=== PATIENT | male | born 1985 | race Caucasian/White ===

== ENCOUNTER 2020-07-18 14:33 | Emergency (ER) | payer MEDICARE, SELFPAY ==
[2020-07-18 14:57] VITALS: BP 127/85; PULSE 105; RESP 20; TEMP 36.8; O2SAT 95; BMI 19.8
--- NOTE | 2020-07-18 15:14 | HMH.EDUTC ---
[facility] [place] Disposition Clinical Impression: Acute bronchitis Qualifiers: Bronchitis organism: unspecified organism Qualified Code(s): J20.9 - Acute bronchitis, unspecified Disposition: Home, Self-Care Condition on Discharge: Good Instructions: Acute Bronchitis, DI for Acute Bronchitis Additional Instructions: Drink plenty of fluids. Take tylenol for pain or fever. Take the medications as directed. Follow up with your regular doctor. GO TO THE ER FOR ANY WORSENING SYMPTOMS Prescriptions: methylPREDNISolone [Medrol] 4 mg PO DIRECTED 6 Days #21 tab.ds.pk Transmission Status: Received by [facility] # Cefdinir [Omnicef 300mg Capsule] 300 mg PO BID #20 cap Transmission Status: Received by [facility] # Referrals: Yogesh Berger MD [Primary Care Provider] - Time of Disposition: 15:20 Medical Decision Making - Medical Records Medical records reviewed: No: I reviewed the patient's medical records. - Jeffy Inquiry Pt receiving controlled substance: No Vital Signs: 07/18/20 14:57 07/18/20 15:23 Temperature 98.3 F 98.3 F Temperature Source Oral Pulse Rate 105 H Pulse Rate [Right Brachial] 105 H Respiratory Rate 20 20 Blood Pressure 127/85 Blood Pressure [Right Arm] 127/85 Blood Pressure Mean [Right Arm] 99 Blood Pressure Source [Right Arm] Automatic Cuff Blood Pressure Position [Right Arm] Sitting 02 Sat by Pulse Oximetry 95 - Lab Data Lab Results 07/18/20 15:15: Chlamy pneumoniae PCR Not detected, Adenovirus (PCR) Not detected, B. pertussis DNA (PCR) Not detected, Coronavirus OC43 (PCR) Not detected, Coronavirus HKU1 (PCR) Not detected, Coronavirus 229E (PCR) Not detected, SARS-CoV-2 (PCR) Not detected, Coronavirus NL63 (PCR) Not detected, Human Metapneumovir PCR Not detected, Influenza A (H1) PCR Not detected, Influ A (H1N1/09) PCR Not detected, Influenza A (H3) PCR Not detected, Influenza Type A (PCR) Not detected, Influenza Type B (PCR) Not detected, M. pneumoniae (PCR) Not detected, Parainfluenza 1 (PCR) Not detected, Parainfluenza 2 (PCR) Not detected, Parainfluenza 3 (PCR) Not detected, Parainfluenza 4 (PCR) Not detected, RSV (PCR) Not detected, Entero/Rhino (PCR) Detected A [facility] [place] HPI - General Stated complaint: congestion Time Seen by Provider: 07/18/20 15:15 Mode of Arrival: Ambulatory Source of Information: Patient Limitations: No Limitations Description of Symptoms (Recalled from Triage Doc. by RN): PATIENT C/O PRODUCTIVE COUGH WITH GREEN MUCOUS X 2-3 DAYS THAT IS WORSE AT NIGHT. HE ALSO REPORTS A PRESSURE ULCER TO RIGHT BUTTOCK THAT HE NOTICED YESTERDAY HEENT Symptoms (Recalled from RN notes): No Resp Symptoms (Recalled from RN notes): Yes Skin Symptoms (Recalled from RN notes): Yes MS Symptoms (Recalled from RN notes): No Functional Status (Recalled from RN notes): WNL - History of Present Illness Provider Complaint: He states that over the past 3 days he has began coughing (productive with greenish sputum) and feeling bad. He denies any know exposure to covid-19. - Related Data Previous Rx's Medication Instructions Recorded Cefdinir [Omnicef 300mg Capsule] 300 mg PO BID #20 cap 07/18/20 methylPREDNISolone [Medrol] 4 mg PO DIRECTED 6 Days #21 07/18/20 tab.ds.pk Allergies Allergy/AdvReac Type Severity Reaction Status Date / Time amoxicillin Allergy Verified 10/15/19 13:02 - Worker's Comp Is this a Worker's Comp case?: No [facility] History - Hepatitis A Screen Drug use history?: No High risk sexual behaviors?: No History of sexually transmitted infection?: No Currently employed?: No Childcare worker?: No Do you have indoor plumbing?: Yes Do you have electricity?: Yes Attestation statement:: This patient has been screened for Hepatitis A risk factors. I have reviewed the patient's past medical history: Yes Medical History: Reports:: Urinary Tract Infection Denies:: Diabetes Mellitus Type 1, Di
[2020-07-18 15:23] VITALS: BP 127/85; PULSE 105; RESP 20; TEMP 36.8; O2SAT 95
[2020-07-18 17:23] LABS: Adenovirus,PCR Not Detected (NotDetected); Bordetella Pertussis Not Detected (NotDetected); Chlamydophila Pneumoniae, PCR Not Detected (NotDetected); Coronavirus 19, PCR Not Detected (NotDetected); Coronavirus 229E Not Detected (NotDetected); Coronavirus NL63 Not Detected (NotDetected); Coronavirus OC43 Not Detected (NotDetected); Coronovirus HKU1,PCR Not Detected (NotDetected); Human Metapneumovirus Not Detected (NotDetected); Influenza A, PCR Not Detected (NotDetected); Influenza AH1, 2009 Not Detected (NotDetected); Influenza AH1, PCR Not Detected (NotDetected); Influenza AH3,PCR Not Detected (NotDetected); Influenza B, PCR Not Detected (NotDetected); Mycoplasma Pneumoniae, PCR Not Detected (NotDetected); Parainfluenza 1, PCR Not Detected (NotDetected); Parainfluenza 2, PCR Not Detected (NotDetected); Parainfluenza 3, PCR Not Detected (NotDetected); Parainfluenza 4, PCR Not Detected (NotDetected); Respiratory Syncytial Virus Not Detected (NotDetected)
[2020-07-18 20:10] LABS: Rhinovirus/Enterovirus Detected (NotDetected)
== END 2020-07-18 15:25 | disposition home or self-care (01) ==
PROVIDERS: Emergency Provider Nurse Practitioner Family; PCP Family Medicine
DX: Z20.828 Contact with and (suspected) exposure to other viral communicable diseases (principal); J20.9 Acute bronchitis, unspecified; G82.21 Paraplegia, complete
CPT/HCPCS: G0463; 87581; 87633; 87798; 99201; U0003

== ENCOUNTER 2020-10-05 13:13 | Emergency (ER) | payer MEDICARE, SELFPAY ==
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
[2020-10-05 13:27] VITALS: BP 114/55; PULSE 64; RESP 21; TEMP 36.9; O2SAT 100; BMI 21.1
[2020-10-05 13:48] VITALS: BP 114/55; PULSE 64; RESP 21; TEMP 36.9; O2SAT 100
== END 2020-10-05 13:50 | disposition home or self-care (01) ==
PROVIDERS: Emergency Provider Physician Assistant; PCP Family Medicine
DX: J01.00 Acute maxillary sinusitis, unspecified (principal); N30.00 Acute cystitis without hematuria; F17.210 Nicotine dependence, cigarettes, uncomplicated; G82.20 Paraplegia, unspecified
CPT/HCPCS: G0463; 99202

== ENCOUNTER 2020-12-07 15:52 | Emergency (ER) | payer MEDICARE, SELFPAY ==
[2020-12-07 15:55] VITALS: BP 132/90; PULSE 82; RESP 19; TEMP 36.6; O2SAT 100; BMI 20.4
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
[2020-12-07 16:17] VITALS: BP 132/90; PULSE 82; RESP 19; TEMP 36.6; O2SAT 100
== END 2020-12-07 16:20 | disposition home or self-care (01) ==
PROVIDERS: Emergency Provider Physician Assistant; PCP Family Medicine
DX: J01.90 Acute sinusitis, unspecified (principal); F17.210 Nicotine dependence, cigarettes, uncomplicated
CPT/HCPCS: 99202; G0463

== ENCOUNTER 2020-12-09 21:30 | Emergency (ER) | payer MEDICARE, SELFPAY ==
[2020-12-09 21:31] VITALS: BP 148/105; PULSE 98; RESP 18; TEMP 37.6; O2SAT 98; BMI 20.4
--- NOTE | 2020-12-09 21:47 | CT_ITS ---
PROCEDURE: CT ABDOMEN PELVIS W CON CLINICAL INDICATION: blood in urine COMPARISON: No exams were available for comparison TECHNIQUE: IV Contrast: 75ML Isovue 370 Oral Contrast None Axial images obtained with sagittal and coronal reformats. All CT scans at the facility use one or more dose reduction, viz: automated exposure control, ma/kV adjustment per patient size (including targeted exams where dose is matched to indication, i.e. head), or iterative reconstruction technique. FINDINGS: LOWER THORAX: No acute finding ABDOMEN & PELVIS: The liver, spleen, right adrenal gland, pancreas, and kidneys have an unremarkable appearance. 12 mm nodule projects off the posterior aspect of the left adrenal gland and is indeterminate. There is a left-sided inferior vena cava which traverses to the right side at the level of the renal veins as normal variant. Multiple unopacified bowel loops in the abdomen or pelvis which could obscure or mimic pathology. If symptoms persist, consider repeat exam with IV and oral contrast.. No evidence of appendicitis. No intestinal obstruction or free air. There is a mild amount of retained colonic feces. Subcutaneous soft tissue thickening noted at the anal region. Please correlate with physical exam. Bony hyperostosis noted at the ischial tuberosities. There are mild degenerative changes of the hips. IMPRESSION: 1. Indeterminate left adrenal nodule. Nonemergent follow-up with CT or MRI adrenal protocol may provide further evaluation. 2. Moderate amount of retained colonic feces. 3. Soft tissue thickening at the anal region of questionable clinical significance. Direct visualization may provide further evaluation Dictated by: Bart Brown MD 12/10/2020 07:07 Bart Brown MD in [place] 12/10/2020 07:07
[2020-12-09 22:11] LABS: Basophils % 0.3 % (0.1-2.0); Eosinophils # 0.1 K/mm3 (0.0-0.4); Eosinophils % 0.5 % (0.1-12.0); Hematocrit 48.2 % (42.0-52.0); Hemoglobin 16.2 g/dL (14.1-18.0); Lymphocytes # 0.9 K/mm3 (0.7-4.5); Mean Corpuscular HGB Conc 33.7 g/dL (31.8-35.4); Mean Corpuscular Hemoglobin 30.8 pg (27.0-31.2); Mean Corpuscular Volume 91.4 fl (80-94); Mean Platelet Volume 8.2 fl (7.4-10.4); Monocytes # 0.6 K/mm3 (0.1-1.0); Monocytes % 4.8 % (1.7-9.3); Neutrophils # 10.7 K/mm3 (1.8-7.8); Neutrophils % 87.4 % (37.0-80.0); Platelet Count 246 K/mm3 (142-424); Red Blood Count 5.27 M/mm3 (4.60-6.20); Red Cell Distribution Width 13.8 % (11.5-17.5); White Blood Count 12.2 K/mm3 (4.8-10.8)
[2020-12-09 22:15] LABS: MANUAL DIFFERENTIAL MANUAL DIFFERENTIAL (MANUAL DIFF)
[2020-12-09 22:19] LABS: Microscopic, Urine URINE MICROSCOPIC (MICROSCOPIC)
[2020-12-09 22:28] LABS: Appearance,Urine TURBID (Clear); Blood, Urine 3+ (Negative); Color,Urine BROWN (Yellow); Glucose,Urine (UA) Negative (Negative); Ketones,Urine TRACE (Negative); Leukocyte Esterase,Urine Negative (Negative); Nitrate,Urine Negative (Negative); PH,Urine 5.5 (5.0-8.5); Protein,Urine 2+ (Negative); Specific Gravity, Urine >= 1.030 (1.005-1.030); Urobilinogen,Urine 0.2 EU/dl (0.2)
[2020-12-09 22:30] LABS: Alanine Aminotransferase 26 U/L (12-78); Albumin Level 5.2 g/dl (3.5-5.0); Albumin/Globulin Ratio 1.7 (1.1-1.8); Alkaline Phosphatase 97 U/L (38-126); Anion Gap 14.6 mEq/L (5-15); Aspartate Amino Transferase 31 U/L (17-59); Bilirubin,Total 0.2 mg/dl (0.2-1.3); Blood Urea Nitrogen 17 mg/dl (9-20); Calcium 10.2 mg/dl (8.4-10.2); Carbon Dioxide 29 mmol/L (22.0-30.0); Chloride 104 mmol/L (98-107); Creatinine Clearance Estimated 126 mL/min (50-200); Estimated Glomerular Filt Rate 109 ml/min (>60); GFR (African American) 132 ML/MIN (>60); Globulin 3.1 g/dL (1.3-3.2); Glucose 113 mg/dl (74-100); Potassium 3.6 mmoL/L (3.5-5.1); Sodium 144 mmol/L (136-145); Total Protein,Serum 8.3 g/dl (6.3-8.2)
[2020-12-09 22:32] LABS: Amorphous Sediment,Urine 4+ /lpf; Bilirubin,Urine Negative (Negative); RBC,Urine TNTC #/hpf (0-3)
[2020-12-09 22:39] LABS: Erythrocyte Sedimentation Rate 2 mm/hr (0-15)
[2020-12-09 22:43] LABS: Lactic Acid 1.9 mmol/L (0.7-2.1); Lymphocytes % 14 % (10-50); Neutrophils % 79 % (42-76); Platelet Estimate Normal; RBC Morphology Normal; Total Cells Counted 100
[2020-12-09 22:52] LABS: Procalcitonin 0.105 ng/mL (0.0-2.0)
--- NOTE | 2020-12-09 22:58 | HMH.EDUROGM ---
ED Disposition Clinical Impression: SIRS (systemic inflammatory response syndrome) Hematuria Qualifiers: Hematuria type: gross Qualified Code(s): R31.0 - Gross hematuria Disposition: Home, Self-Care Condition on Discharge: Good Instructions: DI for Hematuria Additional Instructions: call dr smith in am Referrals: Yogesh Berger MD [Primary Care Provider] - - Critical Care Critical Care Time: No Attestation: On 12/09/20, the high probability of a clinically significant, sudden or life threatening deterioration of the following system(s) required my full and direct attention, intervention and personal management. The time I documented below is in addition to time spent performing reported procedures but includes the following listed in this critical care notation. Medical Decision Making - Medical Records Medical records reviewed: Yes: I reviewed the patient's medical records. - Jeffy Inquiry Pt receiving controlled substance: No Vital Signs: 12/09/20 21:31 Temperature 99.7 F H Temperature Source Oral Pulse Rate [Right] 98 H Respiratory Rate 18 Blood Pressure [Right Arm] 148/105 H Blood Pressure Mean [Right Arm] 119 02 Sat by Pulse Oximetry 98 - Lab Data Lab results reviewed: Yes: I reviewed the patient's lab results. Lab Results 12/09/20 21:51: Urine Color Brown, Urine Appearance Turbid, Urine pH 5.5, Ur Specific Pala >= 1.030, Urine Protein 2+, Urine Glucose (UA) Negative, Urine Ketones Trace, Urine Blood 3+, Urine Nitrate Negative, Urine Bilirubin Negative, Urine Urobilinogen 0.2, Ur Leukocyte Esterase Negative, Urine RBC Tntc, Amorphous Sediment 4+ 12/09/20 22:00: WBC 12.2 H, RBC 5.27, Hgb 16.2, Hct 48.2, MCV 91.4, MCH 30.8, MCHC 33.7, RDW 13.8, Plt Count 246, MPV 8.2, Neut % (Auto) 87.4 H, Lymph % (Auto) 7.0 L, Winn % (Auto) 4.8, Eos % (Auto) 0.5, Baso % (Auto) 0.3, Neut # (Auto) 10.7 H, Lymph # (Auto) 0.9, Winn # (Auto) 0.6, Eos # (Auto) 0.1, Baso # (Auto) 0.0, Total Counted 100, Neutrophils % (Manual) 79 H, Band Neutrophils % 7.0, Lymphocytes % (Manual) 14, Platelet Estimate Normal, RBC Morphology Normal, ESR 2 12/09/20 22:00: Sodium 144, Potassium 3.6, Chloride 104, Carbon Dioxide 29, Anion Gap 14.6, BUN 17, Creatinine 0.80, Estimated Creat Clear 126, Estimated GFR 109, Est GFR ( Amer) 132, Glucose 113 H, Calcium 10.2, Total Bilirubin 0.2, AST 31, ALT 26, Alkaline Phosphatase 97, C-Reactive Protein 23.0 H, Total Protein 8.3 H, Albumin 5.2 H, Globulin 3.1, Albumin/Globulin Ratio 1.7, Procalcitonin 0.105 12/09/20 22:00: Lactate 1.9 Result diagrams: 12/09/20 22:00 12/09/20 22:00 Orders (Tests/Meds): ED MEDICATIONS Generic Name Dose Route Start Last Admin Trade Name Freq PRN Reason Stop Dose Admin Sodium Chloride 1,000 mls @ 999 mls/hr 12/09/20 22:00 12/09/20 23:05 Sod Chlor 0.9% 1000ml Bag IV 12/09/20 23:00 999 mls/hr .Q1H1M ELVIA Administration Ceftriaxone Sodium 1 gm/ 50 mls @ 100 mls/hr 12/09/20 23:00 12/09/20 23:04 Sodium Chloride IV 12/23/20 22:59 100 mls/hr Q24H ELVIA Administration Protocol Discontinued Medications Generic Name Dose Route Start Last Admin Trade Name Freq PRN Reason Stop Dose Admin Acetaminophen/Codeine Phosphate 1 [place]ston 12/09/20 23:00 12/09/20 23:05 Acetaminophen 300mg W/Codeine 30mg Take Home Pack (6) PO 12/09/20 23:01 1 winston ONCE ONE Administration Iopamidol 70 ml 12/09/20 22:45 12/09/20 22:46 Iopamidol-370 (76%);100ml Bottle IV 12/09/20 22:46 70 ml ONCE ONE Administration Ketorolac Tromethamine 30 mg 12/09/20 23:01 12/09/20 23:04 Ketorolac 30mg/Ml Vial IV 12/09/20 23:02 30 mg ONCE ONE Administration Ondansetron HCl 4 mg 12/09/20 23:01 12/09/20 23:04 Ondansetron 4mg/2ml Vial IV 12/09/20 23:02 4 mg ONCE ONE Administration Sodium Chloride 10 ml 12/09/20 22:45 12/09/20 22:46 Sodium Chloride 0.9% 10ml Syr (Rad Only) IV 12/09/20 22:46 10 ml ONCE ONE Administration
[2020-12-09 23:22] VITALS: BP 134/89; PULSE 87; RESP 16; TEMP 37.2; O2SAT 96
== END 2020-12-09 23:24 | disposition home or self-care (01) ==
PROVIDERS: Emergency Provider Emergency Medicine; PCP Family Medicine
DX: R31.0 Gross hematuria (principal); R65.10 Systemic inflammatory response syndrome (SIRS) of non-infectious origin without acute organ dysfunction; Z88.1 Allergy status to other antibiotic agents; G82.21 Paraplegia, complete
CPT/HCPCS: 74177; 80053; 81001; 83605; 84145; 85007; 85025; 85651; 86140; 87040; 87086; 96375; 99283; J2405; Q9967

== ENCOUNTER 2020-12-27 14:25 | Emergency (ER) | payer MEDICARE, SELFPAY ==
[2020-12-27 14:25] VITALS: BP 133/79; PULSE 86; RESP 20; TEMP 37; O2SAT 100; BMI 22.1
--- NOTE | 2020-12-27 14:46 | HMH.EDUTC ---
[facility] [place]position Clinical Impression: Sinusitis Qualifiers: Sinusitis location: unspecified location Chronicity: unspecified Qualified Code(s): J32.9 - Chronic sinusitis, unspecified Acute bronchitis Qualifiers: Bronchitis organism: unspecified organism Qualified Code(s): J20.9 - Acute bronchitis, unspecified Disposition: Home, Self-Care Condition on Discharge: Good Instructions: Sinusitis, DI for Sinusitis, Acute Bronchitis, DI for Acute Bronchitis, DI for Urinary Tract Infection (UTI) Additional Instructions: ? Start antibiotic today. Be sure to complete entire prescription even if feeling better ? Monitor temp. Tylenol every 4 hours as needed and / or ibuprofen every 6 hours as needed ( As long as your primary care physician has told you that it ok to take both. For fever/aches/pains ER if no less than 101 despite Tylenol or Motrin ? Humidifier/vaporizer or hot steamy shower ? Inhaler every 4-6 hours as needed like we discussed. If unsure how to use it, ask pharmacist to demonstrate how. Should help open airways and improve cough, wheezing, and shortness of breath ? Mucinex during the day for your cough and cough suppressant only at night. Be sure to drink lots of water. Insurance may not cover a prescriptions for mucinex. Might be cheaper to get 400mg tablets and take 2 tablet in the morning, mid-day and evening with lots of water. *Start steroid today. Helps with inflammation therefore, cough and wheezing. Follow directions on the package. Reviewed side effects. Patient reports taking them before. Follow up IMMEDIATELY for new or worsening of symptoms OR no noticeable improvement over the next 48-72 hours. 911 immediately for any life threatening symptoms such as chest pain or difficulty breathing *Increase fluids. Water not Soda or Tea *Start antibiotic immediately and be sure to take as ordered for the FULL length of time although you should start to see improvement over the next 48 hours *Be SURE to follow up anytime for new or worsening symptoms with your family doctor. AND in 48 hours for urine culture results with your family doctor, if you do not have a doctor then you may call back to the [facility] for urine culture results and further treatment. We do recommend that you choose and establish care with a Primary Care Physician. AND follow up with them in 10-14 days to repeat UA to ensure infection is resolved and blood no longer present *Be sure to let your PCP know that we sent urine cultures from the [facility] so they can follow up to ensure that you area the on the correct antibiotic Call your doctor office and make appointment for 48 hours (2 days from today) to follow up and get the results of your urine culture and further treatment Prescriptions: methylPREDNISolone [Medrol 4mg tab] 4 mg PO DIRECTED #21 tab Transmission Status: Pending to [facility] # guaiFENesin [Mucinex 600mg tablet] 600 mg PO BID PRN #20 tab.er.12h PRN Reason: Congestion Transmission Status: Pending to [facility] # Cefdinir [Omnicef 300mg Capsule] 300 mg PO BID #20 cap Transmission Status: Pending to [facility] # Referrals: Yogesh Berger MD [Primary Care Provider] - As needed Time of Disposition: 15:00 Medical Decision Making - Jeffy Inquiry Pt receiving controlled substance: No Jeffy was queried for this patient: No Vital Signs: 12/27/20 14:25 Temperature 98.6 F Temperature Source Oral Pulse Rate [Right Brachial] 86 Respiratory Rate 20 Blood Pressure [Right Arm] 133/79 Blood Pressure Mean [Right Arm] 97 Blood Pressure Source [Right Arm] Automatic Cuff Blood Pressure Position [Right Arm] Sitting 02 Sat by Pulse Oximetry 100 Oxygen Delivery Method Room Air - Lab Data Lab results reviewed: Yes: I reviewed the patient's lab results. Medical Decision Narrative: Patient states that he has taken Cefdinir in the past without reactions or complications. [facility] [place] HPI - Gen
[2020-12-27 14:52] LABS: Apearance,Urine Clear (Clear); Bilirubin,Urine 1+ (Negative); Blood, Urine 2+ (Negative); Color,Urine Yellow (Yellow); Glucose,Urine (UA) Negative (Negative); Ketones,Urine Negative (Negative); Protein,Urine 1+ (Negative); Specific Gravity, Urine 1.025 (1.005-1.030)
[2020-12-27 14:53] LABS: UTC Leukocyte Esterase,Urine Trace (Negative); UTC Nitrate,Urine Negative (Negative); Urobilinogen,Urine 1 EU/dl (0.2)
[2020-12-27 15:00] VITALS: BP 133/79; PULSE 86; RESP 20; TEMP 37; O2SAT 100
== END 2020-12-27 15:05 | disposition home or self-care (01) ==
PROVIDERS: Emergency Provider Nurse Practitioner; PCP Family Medicine
DX: J20.9 Acute bronchitis, unspecified (principal); J32.9 Chronic sinusitis, unspecified; G83.89 Other specified paralytic syndromes; T83.518A Infection and inflammatory reaction due to other urinary catheter, initial encounter
CPT/HCPCS: 81003; 87086; 87880; 99202; G0463

== ENCOUNTER 2021-03-27 12:28 | Emergency (ER) | payer MEDICARE, SELFPAY ==
[2021-03-27 12:37] VITALS: BP 128/73; PULSE 91; RESP 19; TEMP 37.1; O2SAT 98; BMI 24.3
--- NOTE | 2021-03-27 12:49 | HMH.EDUTC ---
[facility] [place] Disposition Clinical Impression: Acute bronchitis Qualifiers: Bronchitis organism: unspecified organism Qualified Code(s): J20.9 - Acute bronchitis, unspecified Sinusitis Qualifiers: Sinusitis location: unspecified location Chronicity: acute Recurrence: non-recurrent Qualified Code(s): J01.90 - Acute sinusitis, unspecified Disposition: Home, Self-Care Condition on Discharge: Good Instructions: DI for Sinusitis, DI for Acute Bronchitis Additional Instructions: Drink plenty of fluids. Take tylenol or ibuprofen for pain or fever. Take the medications as directed. Follow up with your regular doctor. GO TO THE ER FOR ANY WORSENING SYMPTOMS The cough medication (promethazine dm) will make you drowsy, so don't drive or operate heavy machinery after taking it. Prescriptions: Promethazine/Dextromethorphan [Promethazine-Dm Syrup] 5 ml PO Q6HP PRN #240 syrup PRN Reason: Cough Transmission Status: Received by freee #[id number] methylPREDNISolone [Medrol] 4 mg PO DIRECTED 6 Days #21 tab.ds.pk Transmission Status: Received by freee #[id number] Azithromycin [Z-Jeison 250mg Tab*] 250 mg PO UD DOSE PK #6 tab Transmission Status: Received by freee #[id number] Referrals: Yogesh Berger MD [Primary Care Provider] - Time of Disposition: 13:07 Medical Decision Making - Medical Records Medical records reviewed: No: I reviewed the patient's medical records. - Jeffy Inquiry Pt receiving controlled substance: No Vital Signs: 03/27/21 12:37 03/27/21 13:14 Temperature 98.7 F 98.7 F Temperature Source Oral Oral Pulse Rate 91 H Pulse Rate [Right Radial] 91 H Respiratory Rate 19 19 Blood Pressure 128/73 Blood Pressure [Right Arm] 128/73 Blood Pressure Mean [Right Arm] 91 Blood Pressure Source Automatic Cuff Blood Pressure Source [Right Arm] Automatic Cuff Blood Pressure Position Sitting Blood Pressure Position [Right Arm] Sitting 02 Sat by Pulse Oximetry 98 Oxygen Delivery Method Room Air Room Air - Lab Data Lab results reviewed: Yes: I reviewed the patient's lab results. [facility] [place] HPI - General Stated complaint: possible sinus infection, bronchitis Time Seen by Provider: 03/27/21 12:49 Mode of Arrival: Wheelchair Source of Information: Patient Limitations: Physical Limitations Description of Symptoms (Recalled from Triage Doc. by RN): sinus HEENT Symptoms (Recalled from RN notes): Yes Resp Symptoms (Recalled from RN notes): No Skin Symptoms (Recalled from RN notes): No MS Symptoms (Recalled from RN notes): No Functional Status (Recalled from RN notes): . - History of Present Illness Provider Complaint: He states that for the past 2 days he has had sinus and chest congestion. He has been coughing very frequently. He denies any fever or chest pain. - Related Data Previous Rx's Medication Instructions Recorded Cefdinir [Omnicef 300mg Capsule] 300 mg PO BID #20 cap 12/27/20 guaiFENesin [Mucinex 600mg tablet] 600 mg PO BID PRN #20 tab.er.12h 12/27/20 methylPREDNISolone [Medrol 4mg 4 mg PO DIRECTED #21 tab 12/27/20 tab] Azithromycin [Z-Jeison 250mg Tab*] 250 mg PO UD DOSE PK #6 tab 03/27/21 Promethazine/Dextromethorphan 5 ml PO Q6HP PRN #240 syrup 03/27/21 [Promethazine-Dm Syrup] methylPREDNISolone [Medrol] 4 mg PO DIRECTED 6 Days #21 03/27/21 tab.ds.pk Allergies Allergy/AdvReac Type Severity Reaction Status Date / Time amoxicillin Allergy Verified 10/15/19 13:02 - Worker's Comp Is this a Worker's Comp case?: No Is this an H Worker's Comp?: No Is this a [place] Worker's Comp?: No [facility] History - Hepatitis A Screen Drug use history?: No High risk sexual behaviors?: No History of sexually transmitted infection?: No Currently employed?: No Childcare worker?: No Do you have indoor plumbing?: No Do you have electricity?: No Attestation statement:: This patient has been screened for Hepatitis A risk factors.
[2021-03-27 13:14] VITALS: BP 128/73; PULSE 91; RESP 19; TEMP 37.1; O2SAT 98
== END 2021-03-27 13:13 | disposition home or self-care (01) ==
LOC: UTC 12:31
PROVIDERS: Emergency Provider Nurse Practitioner Family; PCP Family Medicine
DX: J20.9 Acute bronchitis, unspecified (principal); J01.90 Acute sinusitis, unspecified; N39.0 Urinary tract infection, site not specified; G82.20 Paraplegia, unspecified; F17.210 Nicotine dependence, cigarettes, uncomplicated; Z88.0 Allergy status to penicillin

== ENCOUNTER 2022-07-12 12:12 | Emergency (ER) | payer MEDICARE, SELFPAY ==
[2022-07-12 13:22] VITALS: BP 130/82; PULSE 71; RESP 18; TEMP 36.9; O2SAT 100; BMI 21.1
--- NOTE | 2022-07-12 13:31 | EXP.UTC ---
Discharge Plan Disposition Patient Disposition: Home, Self-Care Condition: Good Prescriptions Prescriptions: New ciprofloxacin HCl [Cipro] 500 mg tablet 500 mg PO BID 14 Days Qty: 28 0RF Referrals Follow up/Referrals: Yogesh Berger MD [Primary Care Provider] - See instructions Clinical Impressions Clinical Impression: UTI (urinary tract infection) Instructions Patient Instructions: Urinary Tract Infection Discharge ED Provider: David Moreno [facility] [place] HPI General Stated complaint: LEAKAGE Time Seen by Provider: 07/12/22 13:31 History of Present Illness Provider Complaint: He has a history of being a paraplegic for the past 18 years. He has to self cath for urination. He states that over the past 2 days he has had leakage of urine when he is not self cathing. In the past, when he has did this he has had a uti. He states that his urine is foul smelling and dark also. He denies any fever, but he has had some chilling. Related Data Previous Rx's Medication Instructions Recorded ciprofloxacin HCl 500 mg tablet 500 mg PO BID 14 days #28 tabs 07/12/22 (Cipro) Allergies Allergy/AdvReac Type Severity Reaction Status Date / Time amoxicillin Allergy Verified 07/12/22 13:32 [facility] Social History Smoking Status: Current every day smoker tobacco type: cigarettes packs per day: 1 second hand exposure: No alcohol intake: never substance use type: denies use current occupational status: employed and disabled Travel in the last 8 weeks: None household members: family housing: house number of children: 0 current occupational exposures/hazards: No caffeine: Yes ROS Obtained: Yes All systems reviewed & no additional complaints except as documented Constitutional Constitutional: Denies chills and Denies fever(s) Eyes Eyes: Denies eye discharge ENT Ears, Nose, Mouth, and Throat: Denies dizziness, Denies otalgia and Denies sore throat Cardiovascular Cardiovascular: Denies chest pain Respiratory Respiratory: Denies shortness of breath, Denies chest congestion, Denies cough, Denies stridor and Denies wheezing Gastrointestinal Gastrointestingal: Denies nausea or vomiting Genitourinary Male Genitourinary: Reports as per HPI Musculoskeletal Musculoskeletal: Reports system reviewed and no additional complaints, except as documented and Denies arthralgias Integumentary/Breasts Skin/Breast: Denies rash Neurologic Neurologic: Denies dizziness and Denies paresthesias Allergic/Immunologic Allergic/Immunologic: Denies wheezing Physical Exam General General appearance: alert and in no apparent distress Head Head exam: atraumatic, normocephalic and normal inspection Eye Eye exam: Present normal appearance, PERRL and EOMI ENT ENT exam: Present normal exam, normal oropharynx, mucous membranes moist, TM's normal bilaterally and normal external ear exam Neck Neck exam: Present normal inspection, full ROM and trachea midline; Absent meningismus or lymphadenopathy Chest Chest inspection: Present normal inspection and symmetric chest wall rise; Absent tenderness Respiratory Respiratory exam: Present normal lung sounds bilaterally; Absent respiratory distress Cardiovascular Cardiovascular exam: Present regular rate and normal rhythm; Absent JVD Abdominal Exam Abdominal exam: Present soft and normal bowel sounds; Absent distention, tenderness or guarding Extremities Exam Extremities exam: Present normal inspection, full ROM and normal capillary refill; Absent calf tenderness Back Exam Back exam: Present normal inspection; Absent tenderness Neurological Exam Neurological exam: Present alert and oriented X3 Psychiatric Psychiatric exam: Present normal affect and normal mood Skin Skin exam: Present warm, dry, intact and normal color Lymphatic Lymphatic Findings: no adenopathy Medical Decision Making Medical Records Medical records reviewed: No
[2022-07-12 13:52] VITALS: BP 130/82; PULSE 71; RESP 18; TEMP 36.9
[2022-07-12 14:07] LABS: Apearance,Urine Cloudy (Clear); Bilirubin,Urine Negative (Negative); Blood, Urine 2+ (Negative); Color,Urine Dark Yellow (Yellow); Glucose,Urine (UA) Negative (Negative); Ketones,Urine Negative (Negative); Protein,Urine 1+ (Negative); Specific Gravity, Urine >= 1.030 (1.005-1.030); UTC Leukocyte Esterase,Urine 1+ (Negative); UTC Nitrate,Urine Positive (Negative); Urobilinogen,Urine 0.2 EU/dl (0.2)
== END 2022-07-12 13:56 | disposition home or self-care (01) ==
PROVIDERS: Emergency Provider Nurse Practitioner Family; PCP Family Medicine
DX: N39.0 Urinary tract infection, site not specified (principal); F17.210 Nicotine dependence, cigarettes, uncomplicated; Z88.0 Allergy status to penicillin; Z88.1 Allergy status to other antibiotic agents; Z88.3 Allergy status to other anti-infective agents
CPT/HCPCS: 81003; 87086; 87088; 87186; 99212; G0463

== ENCOUNTER 2022-09-19 13:01 | Emergency (ER) | payer MEDICARE, SELFPAY ==
[2022-09-19 15:33] VITALS: BP 102/53; PULSE 60; RESP 16; TEMP 37.1; O2SAT 100; BMI 20.4
[2022-09-19 15:37] LABS: Apearance,Urine Cloudy (Clear); Bilirubin,Urine Negative (Negative); Blood, Urine Trace (Negative); Color,Urine Dark Yellow (Yellow); Glucose,Urine (UA) Negative (Negative); Ketones,Urine Negative (Negative); PH,Urine 6.5 (5.0-8.5); Protein,Urine 1+ (Negative); Specific Gravity, Urine >= 1.030 (1.005-1.030)
[2022-09-19 15:38] LABS: UTC Leukocyte Esterase,Urine 2+ (Negative); UTC Nitrate,Urine Negative (Negative); Urobilinogen,Urine 0.2 EU/dl (0.2)
--- NOTE | 2022-09-19 15:40 | EXP.UTC ---
Discharge Plan Disposition Patient Disposition: Home, Self-Care Condition: Good Prescriptions Prescriptions: New sulfamethoxazole-trimethoprim [Bactrim DS] 800-160 mg tablet 1 tab PO Q12H 10 Days Qty: 20 0RF No Action ciprofloxacin HCl [Cipro] 500 mg tablet 500 mg PO BID 14 Days Qty: 28 0RF Referrals Follow up/Referrals: Yogesh Berger MD [Primary Care Provider] - See instructions Activity Restrictions/Add. Instructions Additional Instructions/Restrictions: *Increase fluids. Water not Soda or Tea *Start antibiotic immediately and be sure to take as ordered for the FULL length of time although you should start to see improvement over the next 48 hours *Be SURE to follow up anytime for new or worsening symptoms with your family doctor. AND in 48 hours for urine culture results with your family doctor, if you do not have a doctor then you may call back to the [facility] for urine culture results and further treatment. We do recommend that you choose and establish care with a Primary Care Physician. ?AND follow up with them ?in 10-14 days to repeat UA to ensure infection is resolved and blood no longer present *Be sure to let your PCP know that we sent urine cultures from the [facility] so they can follow up to ensure that you area the on the correct antibiotic Call your doctor office and make appointment for 48 hours (2 days from today) ?to follow up and get the results of your urine culture and further treatment Clinical Impressions Clinical Impression: UTI (urinary tract infection) Instructions Patient Instructions: Trimethoprim/Sulfamethoxazole (Alternative Therapy), Urinary Tract Infection, DI for Urinary Tract Infection (UTI) Discharge ED Provider: Susan Ramirez [facility] [place] HPI General Stated complaint: oneil when urination Mode of Arrival: Wheelchair Source of Information: Patient Limitations: No Limitations Time Seen by Provider: 09/19/22 15:41 Description of Symptoms (Recalled from Triage Doc. by RN): pt comes in with c/o uti. symptoms began this am. burning and odor. HEENT Symptoms (Recalled from RN notes): No Resp Symptoms (Recalled from RN notes): No Skin Symptoms (Recalled from RN notes): No MS Symptoms (Recalled from RN notes): No Functional Status (Recalled from RN notes): n/a History of Present Illness Provider Complaint: Patient states that he has to self cath States that he has noticed he was having strong odor to his urine, feeling like he has to cath more frequently than usual common symptoms he has had in the past with UTI States that he usually has to take Bactrim or Cipro and last time they give him Cipro didnt feel like it worked well Related Data Previous Rx's Medication Instructions Recorded ciprofloxacin HCl 500 mg tablet 500 mg PO BID 14 days #28 tabs 07/12/22 (Cipro) sulfamethoxazole 800 1 tab PO Q12H 10 days #20 tabs 09/19/22 mg-trimethoprim 160 mg tablet (Bactrim DS) Allergies Allergy/AdvReac Type Severity Reaction Status Date / Time amoxicillin Allergy Verified 09/19/22 15:36 Worker's Comp Is this a Worker's Comp case?: No [facility] Disclaimer: The information contained in this section may have been updated after the patient was seen, as this information can be updated by other users. Social History Smoking Status: Current every day smoker tobacco type: cigarettes packs per day: 1 second hand exposure: No alcohol intake: never substance use type: denies use current occupational status: employed and disabled Travel in the last 8 weeks: None household members: family housing: house number of children: 0 current occupational exposures/hazards: No caffeine: Yes ROS Obtained: Yes All systems reviewed & no additional complaints except as documented and Yes Systems reviewed as appropriate & no additional complaints except as documented Constitutional Constitutional: Reports system reviewed and no ad
[2022-09-19 16:06] VITALS: BP 102/53; PULSE 60; RESP 16; TEMP 37.1
== END 2022-09-19 16:07 | disposition home or self-care (01) ==
PROVIDERS: Emergency Provider Nurse Practitioner; PCP Family Medicine
DX: N39.0 Urinary tract infection, site not specified (principal)
CPT/HCPCS: 81003; 87086; 87088; 87186; 99212; G0463

== ENCOUNTER 2023-07-30 12:27 | Emergency (ER) | payer MEDICARE, SELFPAY ==
[2023-07-30 12:50] VITALS: BP 142/70; PULSE 62; RESP 18; TEMP 36.6; O2SAT 100; BMI 19.8
--- NOTE | 2023-07-30 12:51 | EXP.UTC ---
Discharge Plan Disposition Patient Disposition: Home, Self-Care Condition: Good Prescriptions Prescriptions: New ciprofloxacin HCl [Cipro] 500 mg tablet 500 mg PO BID 10 Days Qty: 20 0RF Referrals Follow up/Referrals: Yogesh Berger MD [Primary Care Provider] - See instructions Activity Restrictions/Add. Instructions Additional Instructions/Restrictions: Drink plenty of fluids. Take tylenol or ibuprofen for pain or fever. Take the medications as directed. Follow up with your regular doctor. GO TO THE ER FOR ANY WORSENING SYMPTOMS The pyridium will make your urine turn orange, this is an expected side effect. It will stain your clothes if it comes into contact with them. We will culture the urine. That will tell what bacteria is causing your infection and which antibiotics will treat it best. Sometimes the first antibiotic we prescribe turns out to not work against different bacteria. So, make sure you follow up within 3 days if you are not getting better. Clinical Impressions Clinical Impression: UTI (urinary tract infection) Instructions Patient Instructions: DI for Urinary Tract Infection (UTI), Urine Culture Discharge ED Provider: David Moreno [facility] General Stated complaint: UTI Time Seen by Provider: 07/30/23 12:51 History of Present Illness Provider Complaint: He has a history of paraplegia. He has to straight cath himself for urination. He states that since yesterday he has had foul smelling urine and cloudy urine. He has also had some low back pain. He states that when he feels like this he is getting a uti. Related Data Previous Rx's Medication Instructions Recorded ciprofloxacin HCl 500 mg tablet 500 mg PO BID 10 days #20 tabs 07/30/23 (Cipro) Allergies Allergy/AdvReac Type Severity Reaction Status Date / Time amoxicillin Allergy Verified 07/30/23 13:[address] [facility] Disclaimer: The information contained in this section may have been updated after the patient was seen, as this information can be updated by other users. Social History Smoking Status: Current every day smoker tobacco type: cigarettes packs per day: 1 second hand exposure: No alcohol intake: never substance use type: denies use current occupational status: employed and disabled Travel in the last 8 weeks: None household members: family housing: house number of children: 0 current occupational exposures/hazards: No caffeine: Yes ROS Obtained: Yes All systems reviewed & no additional complaints except as documented Constitutional Constitutional: Denies chills and Denies fever(s) Eyes Eyes: Denies eye discharge ENT Ears, Nose, Mouth, and Throat: Denies otalgia and Denies sore throat Cardiovascular Cardiovascular: Denies chest pain Respiratory Respiratory: Denies shortness of breath, Denies chest congestion, Denies cough, Denies stridor and Denies wheezing Gastrointestinal Gastrointestingal: Denies nausea or vomiting Genitourinary Male Genitourinary: Reports as per HPI Musculoskeletal Musculoskeletal: Reports system reviewed and no additional complaints, except as documented and Denies arthralgias Integumentary/Breasts Skin/Breast: Denies rash Neurologic Neurologic: Reports as per HPI Allergic/Immunologic Allergic/Immunologic: Denies wheezing Physical Exam General General appearance: alert and in no apparent distress Head Head exam: atraumatic, normocephalic and normal inspection Eye Eye exam: Present normal appearance, PERRL and EOMI ENT ENT exam: Present normal exam, normal oropharynx, mucous membranes moist, TM's normal bilaterally and normal external ear exam Neck Neck exam: Present normal inspection, full ROM and trachea midline; Absent meningismus or lymphadenopathy Chest Chest inspection: Present normal inspection and symmetric chest wall rise; Absent tenderness Respiratory Respiratory exam: Present
[2023-07-30 12:58] LABS: Apearance,Urine Cloudy (Clear); Color,Urine Dark Yellow (Yellow); PH,Urine 5.5 (5.0-8.5); Protein,Urine 3+ (Negative)
[2023-07-30 12:59] LABS: Bilirubin,Urine Negative (Negative); Blood, Urine 1+ (Negative); Glucose,Urine (UA) Negative (Negative); Ketones,Urine Negative (Negative); UTC Leukocyte Esterase,Urine 1+ (Negative); UTC Nitrate,Urine Negative (Negative); Urobilinogen,Urine 0.2 EU/dl (0.2)
[2023-07-30 13:18] VITALS: BP 142/70; PULSE 62; RESP 18; TEMP 36.6; O2SAT 100
== END 2023-07-30 13:18 | disposition home or self-care (01) ==
PROVIDERS: Emergency Provider Nurse Practitioner Family; PCP Family Medicine
DX: N39.0 Urinary tract infection, site not specified (principal); B96.89 Other specified bacterial agents as the cause of diseases classified elsewhere; M54.59 Other low back pain; F17.210 Nicotine dependence, cigarettes, uncomplicated
CPT/HCPCS: 81003; 87086; 99212; 99214; G0463

== ENCOUNTER 2025-03-27 16:47 | Outpatient (CLI) | payer MEDICARE, SELFPAY ==
--- OUTSIDE RECORDS SUMMARY | 2025-03-01 09:00 | XMS_ITS | Encounter Summary ---
Author Organization Healthcare Address [address] [place] [address] Care Team Providers Care Web Designer Name Role Phone Pcp, No Primary Care Provider Unavailabl e Reason for Visit * Reason Comments Wound Check Encounter Details Date Type Department Care Team (Late st Contact Info) Description 03/01/2025 9:00 AM EDT [facility] [address] [facility] [address] [place] [id number] Jocelyn Jacobs MD [address] [facility] [address] [place] [address] Right ischial pressure sore, unspecified pressure ulcer stage (Primary Dx) Social History Tobacco Use Types Packs/Day Years Used Date Smoking Tobacco: Former Cigarettes 0.5 20 2 003 - 2022 Passive Smoke Exposure: Past Smokeless Tobacco: Former Snuff Comments:Ready to quit: No Counseling given: Yes The patient has been counseled on tobacco cessation: Yes Alcohol Use Standard Drinks/Week Comments Not Currently 0 (1 standard drink = 0.6 oz pur e alcohol) PHQ-2 Answer Date Recorded Patient Health Questionnaire-2 Score 6 12/04/2023 PHQ-9 Answer Date Recorded Patient Health Questionnaire-9 Score 13 12/04/2023 AUDIT-C Answer Date Recorded Q1: How often do you have a drink containing alcohol? Never 03/01/2025 Q2: How many drinks containi ng alcohol do you have on a typical day when you are drinking? Patient does not drink Q3: How often do you have si x or more drinks on one occasion? Never 03/01/2025 Sex and Gender Information Value Date Recorded Sex Assigned at Not on file Legal Sex Male 8:20 PM EDT Gender Identity Not on file Sexual Orientation Don't know 07/26/2024 1: 33 PM EST documented as of this encounter Last Filed Vital Signs Vital Sign Reading Time Taken Comments Blood Pressure 112/75 03/01/2025 8:42 AM EDT Pulse 58 03/01/2025 8:42 AM EDT Temperature 36.2 C (97.1 F) 03/01/2025 8:42 AM EDT Respiratory Rate - - Oxygen Saturation 100% 03/01/2025 8:42 AM EDT Inhaled Oxygen Concentration - - Weight 59 kg (130 lb) 03/01/2025 8:42 AM EDT Height 185.4 cm (6' 1 ) 03/01/2025 8:42 AM EDT Body Mass Index 17.15 03/01/2025 8:42 AM EDT documented in this encounter Functional Status * AUDIT-C Score Answer Date of Assessment Author 0 03/01/2025 8:44 AM EDT Gideon Vides * Question Answer Date of Assessment Author Q1: How often do you have a drink containing alcohol? Never 03/01/2025 8:44 AM EDT Teetee Vides Q2: How many drinks containing alcohol do you have on a typical day when you are drinking? Patient does not drink 03/01/2025 8:44 AM EDT Teetee Vides Q3: How often do you have six or more drinks on one occasion? Never 03/01/2025 8:44 AM EDT Teetee Vides documented as of this encounter Miscellaneous Notes * Patient Instructions - Cipriano Arriaga RN - 03/01/2025 9:00 AM EDT [facility] Physician Orders/Patient Instructions Should you notice a significant change in your wound(s) (such as increased drainage, foul odor, or pain) or have questions or problems following these instructions, please contact us at or call your primary care physician or the hospital emergency rooms. Offloading: Keep weight off of wound at all times. Change position every 2 hours. Try not to sit for long periods of time. Wound Care/Dressing: Wound location: right buttock Cleanse Wound With: Dakins 1/4 strength Apply: Antibiotic topical moistened gauze. Use saline or sterile water to create solution. Cover With: Dry gauze Secure With: Bordered gauze, ABD and silicone tape, or allevyn Dressing Changes: Twice daily * Progress Notes - Katie Kathryn Faustino - 03/01/2025 9:00 AM EDT Images from the original note were not included. Plastic Surgery History and Physical Chief Complaint: wound check HPI: Bonifacio Chavez is a 39 y.o. male with a PMHx significant for paraplegia following-up at wound care clinic for further evaluation and management of chronic right ischial pressure ulcer. Patient states he had been doing Dakins WTD dressing changes TID. He does frequent pressure offloading every 15 minutes. He states he feels the wound base is getting closer to the surface and the size of the wound is improving. He still has some clear/yellowish drainage from the wound. Patient expresses concern that the skin might close before the wound base has adequately filled in. He denies nausea, vomiting, or fever. Patient has had three debridements of the wound since 09/2022 with the most recent one on 07/26/2024. Review of Systems: A complete 14-review of systems was performed and was negative except for those details provided inthe HPI Allergies: Allergies Allergen Reactions Amoxicillin Unknown - Patient states they do not know rxn details Penicillins Rash Past Surgical History: Past Surgical History: Procedure Laterality Date MUSCLE FLAP Right buttocks PRESSURE ULCER DEBRIDEMENT 11/17/2023 SPINAL FUSION Reviewed & NC Past Medical History: Past Medical History: Diagnosis Date Anxiety Depression H/O spinal cord injury History of transfusion no reaction per pt Paraplegia Reviewed & NC Family History: Reviewed and non-contributory. Social History: Tobacco Use: hx of 1/2 ppd, 20 years. No longer uses Alcohol Use: denies Illicit Drug Use: denies Physical Exam: Constitutional: Alert, no acute distress SKIN: Right sided ischial pressure ulcer with improvement in skin edges and size of wound. Wound base with pink healthy granulation tissue. Areas of white scarring present. Approx. 2 cm superior tunneling. No purulence or exudate. HEENT: Atraumatic. Normocephalic. Moist mucous membranes. EOMI. External appearance of bilateral ears and nose WNL. PULM: Nonlabored breathing. CV: Extremities well perfused MSK: No edema noted. NEURO: Alert and oriented x3. PSYCH: Normal mood and behavior. IMAGING: Vitals: Visit Vitals BP 112/75 (BP Location: Left arm, Patient Position: Sitting) Pulse 58 Temp (!) 36.2 ??C (97.1 ??F) (Temporal) Ht 1.854 m (6' 1 ) Wt 59 kg (130 lb) SpO2 100% BMI 17.15 kg/m?? Assessment: Bonifacio Chavez is a 39 y.o. male with a PMHx significant for paraplegia following-up at wound care clinic for further evaluation and management of right ischial pressure ulcer. Wound appears to be improving in size with the superior tunneling approx 2cm. Last wound debridement was on 07/26/2024. Plan: - Continue TID WTD dressing changes - Continue frequent pressure offloading - Continue adequate nutrition for appropriate wound healing - RTC in [address] Jacobs - Please call with any additional questions or concerns Kathryn Wilson PA-S Cosigned by Jocelyn Jacobs MD at 03/05/2025 4:59 PM EDT Associated attestation - Jocelyn Jacobs MD - 03/05/2025 4:59 PM EDT I saw and evaluated the patient with the PA student. I discussed the case with the medical/CHEESE PANCAKE ROLLER/PA student and agree with the findings and plan as documented. I personally performed the Exam and Medical Decision Making. documented in this encounter Plan of Treatment Upcoming Encounters Date Type Department Care Team (Late st Contact Info) Description 04/21/2025 9:00 AM EDT Office Visit [facility] [address] [facility] [address]th [address] [place] [id number] Jocelyn Jacobs MD [address] [place] [id number] documented as of this encounter Visit Diagnoses Diagnosis Right ischial pressure sore, unspecified pressure ulcer stage- Primary documented in this encounter Additional Health Concerns Infection Onset Date Last Indicated Resolved Time 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
--- OUTSIDE RECORDS SUMMARY | 2025-03-27 16:50 | XMS_ITS | Clinical Summary ---
Author Organization Healthcare Address [address] [place] [address] Care Team Providers Care Communication Center Coordinator Name Role Phone Pcp, No Primary Care Provider Unavailabl e Allergies Active Allergy Reactions Criticality Noted Date Comments Amoxicillin Unknown - Patient st ates they do not know rxn details Low 07/12/2022 Penicillins Rash Low 07/25/2022 Medications sulfamethoxazole -trimethoprim (Bactrim DS) 800-160 MG tablet 3 Active traZODone (Desyrel) 50 MG tablet Take 0.5 tablets (25 mg) by mouth nightly. 4 Active Sodium Hypochlorite (Dakins, 1/4 strength,) 0.125 % solutionIndicati ons:Pressure injury of right buttock, unstageable (CMS/HCC) 1/4 strength Dakins solution for wound care. Use daily and as needed per soiling. 473 mL 6 4 Active tobramycin (Nebcin) 1.2 g injection 4 Active gentamicin (Garamycin) 0.1 % ointment Sprinkle 2 grams onto moistened gauze. Apply to affected areas. Perform once daily as directed. 4 Active Sodium Hypochlorite (Dakins, 1/4 strength,) 0.125 % solutionIndicati ons:Open wound,Pressure injury of right buttock, stage 4 (CMS/HCC) Wash wound daily with 1/4 strength Dakins 473 mL 3 5 Active Additional Information Patient not taking.Reported on 03/01/2025 Active Problems Problem Noted Date Diagnosed Date Pressure injury of skin of right buttock 02/16/2 024 Open wound 02/06/2023 Pressure injury of right buttock, unstageable Overview (09/04/2022): Added automatically from request for surgery [id number] Paraplegia Encounters Date Type Department Care Team Description 03/01/2025 9:00 AM EDT Office Visit [facility] [address] [place] [address] Jocelyn Jacobs MD Right ischial pressure sore, unspecified pressure ulcer stage (Primary Dx) 03/01/2025 Travel 01/20/2025 9:00 AM EDT Office Visit [facility] [address] [place] [address] Jocelyn Jacobs MD Open wound (Primary Dx); Pressure injury of right buttock, stage 4 (CMS/HCC) 01/20/2025 Travel from Last 3 Months Family History Medical History Relation Name Comments No Known Problems Father No Known Problems Mother Anesthesia problems Neg Hx Malig Hyperthermia Neg Hx Relation Name Status Comments Father Mother Social History Tobacco Use Types Packs/Day Years [...] Don't know 07/26/2024 1: 33 PM EST Last Filed Vital Signs Vital Sign Reading Time Taken Comments Blood Pressure 112/75 03/01/2025 8:42 AM EDT Pulse 58 03/01/2025 8:42 AM EDT Temperature 36.2 C (97.1 F) 03/01/2025 8:42 AM EDT Respiratory Rate 12 07/26/2024 5:50 PM EST Oxygen Saturation 100% 03/01/2025 8:42 AM EDT Inhaled Oxygen Concentration - - Weight 59 kg (130 lb) 03/01/2025 8:42 AM EDT Height 185.4 cm (6' 1 ) 03/01/2025 8:42 AM EDT Body Mass Index 17.15 03/01/2025 8:42 AM EDT Plan of Treatment Upcoming Encounters Date Type Department Care Team (Late st Contact Info) Description 04/21/2025 9:00 AM EDT Office Visit [facility] [address] [place] [address] Jocelyn Jacobs MD [address] [phone] Health Maintenance Due Date Last Done Comments [facility]-HIV Screening 1983 [facility]-Hepatitis C Screening 1983 [facility]-Medicare Annual Wellness (AWV) 1983 [facility]-Infant/Child/Adol SDOH Screenings 1983 [facility]-Varicella Vaccines (1 of 2 - 13+ 2-dose series) 1996 HPV Vaccines (1 - Male 3-dose series) 1998 [facility]- SDOH Screenings 2001 [facility]-Adult SDOH Screenings 2001 [facility]-DTaP,Tdap,and Td Vaccines (1 - Tdap) 2002 [facility]-Hepatitis B Vaccines (1 of 3 - 19+ 3-dose series) 2002 [facility]-[id number]-29 Vaccine ( - season) 2024 [facility]-Depression Screening 12/03/2024 024, 12/04/2023 [facility]-Influenza Vaccine (#1) 2025 [facility]-Zoster Vaccines (1 of 2) 2033 [facility]-HIB Vaccines Aged Out No longer e ligible based on patient's age to complete this topic [facility]-Hepatitis A Vaccines Aged Out No longer eligible based on patient's age to complete this topic [facility]-IPV Vaccines Aged Out No longer e ligible based on patient's age to complete this topic [facility]-Pneumococcal Vaccine: Pediatrics (0 to 5 Years) and At-Risk Patients (6 to 49 Years) Aged Out No longer eligible b ased on patient's age to complete this topic [facility]-Rotavirus Vaccines Aged Out No lo nger eligible based on patient's age to complete this topic Additional Health Concerns Infection Onset Date 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
--- OUTSIDE RECORDS SUMMARY | 2025-03-27 16:50 | XMS_ITS | Encounter Summary ---
Author Organization Healthcare Address [address] [place] [address] Care Team Providers Care Melangeur Operator Name Role Phone Pcp, No Primary Care Provider Unavailabl e Encounter Details Date Type Department Care Team (Latest Contact Info) Description 03/01/2025 Travel Social History Tobacco Use Types Packs/Day Years [...] PM EST documented as of this encounter Functional Status * AUDIT-C Score [...] Teetee Vides documented as of this encounter Plan of Treatment Upcoming Encounters Date Type Department Care Team (Late st Contact Info) Description 04/21/2025 9:00 AM EDT [facility] [address] [facility] 5th Floor [address], [address] [place] [address] Jocelyn Jacobs MD [address] [phone] documented as of this encounter Visit Diagnoses Not on filedocumented in this encounter Additional Health Concerns Infection [...] documented as of this encounter Care Teams Melangeur Operator Relationship Specialty Start Date End Date Pcp, [place] [address] PCP - General Family Medicine 06/26/22 documented as of this encounter
[2025-03-27 17:05] LABS: Adenovirus F 40/41, stool Not Detected (NotDetected); Clostridium Difficile A/B, PCR Not Detected (NotDetected); Cyclospora Cayetanesis Not Detected (NotDetected); Salmonella, PCR Not Detected (NotDetected); Shigella Enterovasive E coli Not Detected (NotDetected); Vibrio, PCR Not Detected (NotDetected); Yersinia Entercolitica, PCR Not Detected (NotDetected)
[2025-03-27 19:47] LABS: Lyme Ab IgM CIA ND
[2025-03-28 11:15] LABS: Plesimonas Shigalloides, PCR Detected (NotDetected); Shiga-like toxin E coli Detected (NotDetected)
[2025-03-29 14:21] LABS: Lyme Ab CIA Negative (Negative)
== END 2025-03-27 23:59 | disposition home or self-care (01) ==
LOC: LAB 16:48
PROVIDERS: PCP Student in an Organized Health Care Education/Training Program; Visit Provider Student in an Organized Health Care Education/Training Program
DX: S90.862A Insect bite (nonvenomous), left foot, initial encounter (principal); R19.7 Diarrhea, unspecified; W57.XXXA Bitten or stung by nonvenomous insect and other nonvenomous arthropods, initial encounter
CPT/HCPCS: 86618; 87507